=== PATIENT | female | born 1940 ===

== ENCOUNTER 2019-02-26 09:49 | Outpatient (CLI) | payer BC ==
[~2019-02-26] VITALS: Ht 162.6 cm; Wt 68.0 kg
[2019-02-26] MEDS ORDERED: ASPIRIN EC81 MG ORAL ×2 (14:12→14:13)
[2019-02-26 14:13] VITALS: BP 189/76
[2019-02-26] MEDS ORDERED: JANUVIA100 MG ORAL (14:13)
[2019-02-26] MEDS ORDERED: ACETAMINOPHEN500 M3 ORAL (14:13)
[2019-02-26] MEDS ORDERED: GLIPIZIDE5 MG ORAL (14:13)
[2019-02-26] MEDS ORDERED: DIOVAN HCT 3201 EAC1 ORAL (14:13)
[2019-02-26] MEDS ORDERED: SLOW RELEASE I143 MG PO (14:13)
[2019-02-26] MEDS ORDERED: PRAVASTATIN SOD20 M1 ORAL (14:13)
[2019-02-26] MEDS ORDERED: FOLIC ACID1 MG ORAL (14:13)
[2019-02-26] MEDS ORDERED: MAGNESIUM500 MG PO (14:13)
[2019-02-26] MEDS ORDERED: IBUPROFEN600 MG ORAL (14:13)
[2019-02-26] MEDS ORDERED: FISH OIL CAP1000 MG ORAL (14:13)
--- NOTE | 2019-02-26 17:30 | Consultation ---
DATE OF CONSULTATION: 02/26/2019 CHIEF COMPLAINT: Complaining of pancreatic cyst seen on the CT scan. HISTORY OF PRESENT ILLNESS: The patient is a very pleasant 78-year-old female with multiple medical problems, which I will dictate in a second, who was referred to us for evaluation for pancreatic cyst. PAST MEDICAL HISTORY: 1. Hypertension. 2. Diabetes. 3. Anemia. 4. GERD. PAST SURGICAL HISTORY: 1. Breast cyst removal. 2. Hysterectomy. 3. Oophorectomy. MEDICATIONS: Please see medication reconciliation list. FAMILY HISTORY: No family history of GI malignancies. SOCIAL HISTORY: The patient denies any tobacco, alcohol, or drug abuse. She is retired. ALLERGIES: Iodine and strawberry. REVIEW OF SYSTEMS: A 10-point review of systems was performed and positive for 16 pounds of weight loss, otherwise negative. PHYSICAL EXAMINATION: VITAL SIGNS: Temperature 97.8, blood pressure is 189/76, pulse , respirations 20. HEENT: Normocephalic and atraumatic. Sclerae anicteric. NECK: Supple. No evidence of obvious lymphadenopathy. CARDIOVASCULAR: Regular rhythm. Plus S1 and S2. No obvious murmur. LUNGS: Clear to auscultation bilaterally. ABDOMEN: Positive bowel sounds. Soft and nontender. No rebound. No guarding. No peritoneal sign. EXTREMITIES: No cyanosis, no clubbing, no edema. LABORATORY AND DIAGNOSTIC DATA: MRI abdomen findings were near the junction of the body and tail of the pancreas, there is a lesion that consistent of multiple clusters of the small cyst, these all under 2 cm and what appears to be a central low-density scar-like opacity in the periphery of cysts, collecting is very lobulated. The contents of the cyst appears to be near ASSESSMENT/PLAN: Pancreatic cyst as dictated above. Plan to do EUS and possible FNA. We are going to get authorization from the insurance and we will schedule her at [facility]. Naresh Stewart M.D. DR: Altagracia JOB#: [id number] CC:
== END 2019-02-26 11:49 | disposition home or self-care (01) ==
LOC: PAN 09:49
DX: K86.2 Cyst of pancreas (principal); Z90.710 Acquired absence of both cervix and uterus; Z90.721 Acquired absence of ovaries, unilateral; I10 Essential (primary) hypertension; E11.9 Type 2 diabetes mellitus without complications; D64.9 Anemia, unspecified; K21.9 Gastro-esophageal reflux disease without esophagitis; Z91.041 Radiographic dye allergy status; Z91.018 Allergy to other foods
CPT/HCPCS: 99202